=== PATIENT | female | born 1995 | race Caucasian/White ===

== ENCOUNTER 2020-09-25 18:28 | Emergency (ER) | payer OTHER, SELFPAY ==
--- NOTE | ~2020-09-25 | XR_ITS ---
XR knee LT 3V 09/25/2020 19:43 INDICATION: Left knee pain PROCEDURE: 3 views left knee COMPARISON: No prior studies for comparison. FINDINGS: Fracture, dislocation or subluxation is not identified. The soft tissues appear within norm al limits. No foreign bodies are identified. IMPRESSION: 1: NO ACUTE BONE OR JOINT ABNORMALITY IDENTIFIED. Reviewed, dictated and finalized at location [facility]. OF PHYSICS
[2020-09-25 18:36] VITALS: BP 109/63; PULSE 72; RESP 20; TEMP 36.6; O2SAT 97
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
[2020-09-25] MEDS: diazePAM (*CRX) 5 MG TABLET PO (19:45)
[2020-09-25] MEDS: IBUPROFEN 600 MG TABLET PO (19:45)
[2020-09-25 20:13] VITALS: BP 110/62; PULSE 78; RESP 16; O2SAT 100
== END 2020-09-25 20:14 | disposition home or self-care (01) ==
PROVIDERS: Emergency Provider Emergency Medicine
DX: S16.1XXA Strain of muscle, fascia and tendon at neck level, initial encounter (principal); S39.012A Strain of muscle, fascia and tendon of lower back, initial encounter; S80.02XA Contusion of left knee, initial encounter; V43.02XA Car driver injured in collision with other type car in nontraffic accident, initial encounter
CPT/HCPCS: 73562; 99283; A9270

== ENCOUNTER 2021-09-22 16:10 | Emergency (ER) | payer MEDICAID, SELFPAY ==
--- NOTE | ~2021-09-22 | CT_ITS ---
EXAMINATION: CT abdomen pelvis w con DATE: 09/22/2021 18:01 INDICATION: Epigastric abdominal pain and gas for 2 days TECHNIQUE: Computed tomography (CT) of the abdomen and pelvis was performed with 100 cc Omnipaque 350 intravenous contrast. Automated exposure control and iterative reconstruction technique were employe d. Exam dose: 261.47 mGy-cm total exam DLP. COMPARISON: None. FINDINGS: The lung bases are clear. Normal heart size. No pericardial or pleural effusion. The liver, gallbladder, bile ducts, spleen, pancreas and pancreatic duct, and adrenal glands and kidn eys are unremarkable. Normal caliber of the abdominal aorta. No intraperitoneal or retroperitoneal or pelvic mass lesion or adenopathy or ascites. The uterus, adnexal areas and urinary bladder are unremarkable. Normal appendix. No small or large bowel dilatation, bowel wall thickening, pneumatosis or intraperitoneal free air. The fluid containing small bowel segments which may be due to enteritis or mild adynamic ileus. Included skeletal structures are unremarkable. IMPRESSION: Nondilated fluid containing small bowel segments, which may be due to enteritis or mild adynamic ileus Normal appendix Reviewed, dictated and finalized at [facility]. Reviewed, dictated and finalized at location [facility]. [employer]
[2021-09-22 16:12] VITALS: BP 129/74; PULSE 75; RESP 14; TEMP 36.6; O2SAT 99
[2021-09-22 16:30] VITALS: BP 120/72; PULSE 78; RESP 18; O2SAT 99
[2021-09-22] MEDS: SODIUM CHLORIDE 0.9% IV 1,000 ML 999 ML IV CONT (16:39)
--- NOTE | 2021-09-22 16:55 | ED.ABDPAIN ---
HPI - Abdominal Pain General Chief Complaint: Abdominal Pain Stated Complaint: abdominal pain Time Seen by Provider: 09/22/21 16:26 Source: patient Mode of arrival: ambulatory Limitations: no limitations History of Present Illness HPI narrative: Patient drove herself to the emergency room because of pain, burning sensation, cramps in the epigastric area started 2 to 3 days ago, got worse today. History of GERD, on [id number] antacid. Patient denies any fever, chills, nausea, vomiting, diarrhea, constipation, radiation of pain patient also denies any history of abdominal surgery, last menstrual period 2 weeks ago Related Data Allergies Allergy/AdvReac Type Severity Reaction Status Date / Time No Known Allergies Allergy Verified 09/22/21 16:27 Review of Systems Review of Systems: CONSTITUTIONAL: Denies fever, chills, or sweats. EYES: Denies visual changes, redness, or discharge. ENT: Denies rhinorrhea, congestion, sore throat, or otalgia. CARDIOVASCULAR: Denies chest pain, palpitations, or edema. RESPIRATORY: Denies cough or dyspnea. GASTROINTESTINAL: Denies abdominal pain, nausea, vomiting, or diarrhea. GENITOURINARY: Denies dysuria or hematuria. SKIN: Denies rash or itching. MUSCULOSKELETAL: Denies back pain, joint pain, or myalgia. NEUROLOGIC: Denies headache, numbness, or weakness. PSYCHIATRIC: Denies anxiety or depression. PMFSH Social History Social History Smoking status: Never smoker Exam Narrative: General appearance: Well-developed, well-nourished Skin: Normal color Head: Normocephalic, nontraumatic Eyes: Clear conjunctiva ENT: Oropharynx normal, ears normal, nose normal Neck: Supple, nontender Chest and respiratory: Airway patent, no respiratory distress, no accessory muscle use Heart: Regular rate/rhythm Abdomen: Soft, moderate tenderness epigastric area, no organomegaly, quiet bowel sounds Vascular: Normal peripheral pulses, normal capillary refill. Musculoskeletal: Normal range of motion, nontender back Neurologic: Alert and oriented ?3, [employer] is normal as tested, no gross motor deficit Course Course Emergency Course: Stable, improving Vital Signs Vital signs: Vital Signs Temperature 36.6 C 09/22/21 16:12 Pulse Rate 75 09/22/21 16:12 Respiratory Rate 14 09/22/21 16:12 Blood Pressure 129/74 09/22/21 16:12 Pulse Oximetry 99 09/22/21 16:12 Temperature 36.6 C 09/22/21 16:12 Pulse Rate 76 09/22/21 19:40 Respiratory Rate 15 09/22/21 19:40 Blood Pressure 132/78 09/22/21 19:40 Pulse Oximetry 99 09/22/21 19:40 MDM - Abdominal Pain MDM Narrative Medical decision making narrative: Epigastric pain Work-up did not show a specific findings to explain patient condition, enteritis is extremely less likely, patient symptoms more likely consistent with gastroesophageal reflux disorder. Differential Diagnosis Differential diagnosis: Likely abdominal pain, constipation, diverticulitis, gastroenteritis, pancreatitis, small bowel obstruction and other (GERD) Lab Data Result diagrams: 09/22/21 17:09 09/22/21 17:09 Labs: Lab Results 09/22/21 09/22/21 09/22/21 Range/Units 17:09 17:09 17:09 WBC 8.2 (4.5-10.0) K/mm3 RBC 4.11 L (4.2-5.4) M/mm3 Hgb 13.2 (12.0-15.0) g/dL Hct 38.4 (37.0-47.0) % MCV 93.4 (80-100) fl MCH 32.1 (26-34) pg MCHC 34.4 (32-36) g/dl RDW 11.9 (11.5-14.5) % Plt Count 268 (150-375) k/mm3 MPV 10.6 H (7.4-10.4) fl Immature Gran % (Auto) 0.2 (0-0.5) % Neut % (Auto) 65.1 (45.5-73.1) % Lymph % (Auto) 27.6 (18.3-44.2) % [place] % (Auto)
[2021-09-22] MEDS: BELLADONNA ALK/PHENOB ELIX 10 ML, MAG HYDROX/ALUMINUM HYD/SIMETH 30 ML, LIDOCAINE HCL 2... PO (17:17)
[2021-09-22] MEDS: ONDANSETRON INJ 4 MG/2 ML VIAL IV PUSH (17:18)
[2021-09-22] MEDS: MORPHINE SULFATE (*CRX) 4 MG/ML INJ IV PUSH ×2 (17:18→19:25)
[2021-09-22 17:27] LABS: Basophils Absolute Auto 0.1 K/mm3 (0.0-0.1); Basophils Percent Auto 0.6 % (0.2-1.2); Eosinophils Absolute Auto 0.1 K/mm3 (0-0.3); Eosinophils Percent Auto 0.7 % (0-4.4); Hematocrit 38.4 % (37.0-47.0); Hemoglobin 13.2 g/dL (12.0-15.0); Immature Granulocyte Absolute 0.02 K/mm3 (0.00-0.031); Immature Granulocyte Percent A 0.2 % (0-0.5); Lymphocytes Absolute Auto 2.27 K/mm3 (0.9-3.2); Lymphocytes Percent Auto 27.6 % (18.3-44.2); Mean Corpuscular HGB Conc 34.4 g/dl (32-36); Mean Corpuscular Hemoglobin 32.1 pg (26-34); Mean Corpuscular Volume 93.4 fl (80-100); Mean Platelet Volume 10.6 fl (7.4-10.4); Monocytes Absolute Auto 0.5 K/mm3 (0.1-0.6); Monocytes Percent Auto 5.8 % (2.6-8.5); Neutrophils Absolute Auto 5.3 K/mm3 (1.3-6.7); Neutrophils Percent Auto 65.1 % (45.5-73.1); Platelet Count Result 268 k/mm3 (150-375); Red Blood Count 4.11 M/mm3 (4.2-5.4); Red Cell Distribution Width 11.9 % (11.5-14.5); White Blood Count 8.2 K/mm3 (4.5-10.0)
[2021-09-22 17:36] LABS: Alanine Aminotransferase 21 U/L (4-35); Albumin Level 4.7 g/dL (3.5-5.1); Alkaline Phosphatase 66 U/L (38-126); Anion Gap 6 mmol/L (8-16); Aspartate Amino Transferase 27 U/L (14-36); Bilirubin,Total 0.4 mg/dL (0.2-1.3); Blood Urea Nitrogen 13 mg/dL (7-17); Calcium 9.4 mg/dL (8.4-10.2); Carbon Dioxide 26 mmol/L (22-30); Chloride 106 mmol/L (98-107); Estimated CRCL calculation 116 ml/min; Estimated Glomerular Filt Rate > 60; Glucose 83 mg/dL (65-110); Lipase 53 U/L (23-300); Potassium 3.6 mmol/L (3.4-5.0); Sodium 138 mmol/L (137-145)
[2021-09-22 17:36] LABS: Add Urine Microscopic? YES; Appearance Urine Clear (Clear); Bacteria Urine Trace /hpf; Bilirubin Urine Negative (Negative); Blood Urine Negative (Negative); Color Urine Colorless (Yellow); Glucose Urine UA Negative (Negative); Ketones Urine Trace mg/dL (Negative); Leukocyte Esterase Ur Negative LEU/UL (Negative); Nitrate Urine Negative (Negative); Protein Urine Negative (Negative); RBC Urine 0-2 /hpf (0-2); Specific Grav Ur 1.006 (1.001-1.035); Squamous Epithelial Cell Urine Few /hpf (Few); Urobilinogen Urine Negative mg/dL (<2.0)
[2021-09-22 18:00] VITALS: BP 122/68; PULSE 70; RESP 18; O2SAT 99
[2021-09-22 19:40] VITALS: BP 132/78; PULSE 76; RESP 15; O2SAT 99
== END 2021-09-22 19:45 | disposition home or self-care (01) ==
PROVIDERS: Emergency Provider Emergency Medicine
DX: R10.13 Epigastric pain (principal)
CPT/HCPCS: 36415; 74177; 80053; 81001; 81025; 83690; 85025; 96361; 96374; 96375; 96376; 99284; A9270; J2270; J2405; J7030; Q9967

== ENCOUNTER 2022-11-05 09:18 | Outpatient (CLI) | payer OTHER, SELFPAY ==
[2022-11-05 09:58] LABS: Basophils Absolute Auto 0.1 K/mm3 (0.0-0.1); Eosinophils Absolute Auto 0.1 K/mm3 (0-0.3); Eosinophils Percent Auto 2.1 % (0-4.4); Hematocrit 40.4 % (37.0-47.0); Hemoglobin 13.9 g/dL (12.0-15.0); Immature Granulocyte Absolute 0.01 K/mm3 (0.00-0.031); Immature Granulocyte Percent A 0.2 % (0-0.5); Lymphocytes Absolute Auto 1.82 K/mm3 (0.9-3.2); Lymphocytes Percent Auto 31.8 % (18.3-44.2); Mean Corpuscular HGB Conc 34.4 g/dl (32-36); Mean Corpuscular Hemoglobin 31.5 pg (26-34); Mean Corpuscular Volume 91.6 fl (80-100); Mean Platelet Volume 9.7 fl (7.4-10.4); Monocytes Absolute Auto 0.5 K/mm3 (0.1-0.6); Monocytes Percent Auto 8.4 % (2.6-8.5); Neutrophils Absolute Auto 3.2 K/mm3 (1.3-6.7); Neutrophils Percent Auto 56.5 % (45.5-73.1); Platelet Count Result 298 k/mm3 (150-375); Red Blood Count 4.41 M/mm3 (4.2-5.4); Red Cell Distribution Width 11.7 % (11.5-14.5); White Blood Count 5.7 K/mm3 (4.5-10.0)
[2022-11-05 10:13] LABS: CRP 0.6 mg/dL (<1.0)
[2022-11-05 10:18] LABS: Alanine Aminotransferase 22 U/L (6-35); Albumin Level 4.7 g/dL (3.5-5.1); Alkaline Phosphatase 57 U/L (38-126); Anion Gap 5 mmol/L (8-16); Aspartate Amino Transferase 22 U/L (14-36); Bilirubin,Total 0.4 mg/dL (0.2-1.3); Blood Urea Nitrogen 14 mg/dL (7-17); Calcium 9.5 mg/dL (8.4-10.2); Carbon Dioxide 29 mmol/L (22-30); Chloride 101 mmol/L (98-107); Cholesterol 161 mg/dL (0-200); Estimated Glomerular Filt Rate > 60; Glucose 95 mg/dL (65-110); HDL Direct 66 mg/dL; Potassium 4.6 mmol/L (3.4-5.0); Sodium 135 mmol/L (137-145); Triglycerides 47 mg/dL (<150)
[2022-11-05 10:22] LABS: LDL Cholesterol Direct 74 mg/dL
[2022-11-05 10:26] LABS: Erythrocyte Sedimentation Rate 22 mm/hr (0-20)
[2022-11-05 10:40] LABS: Thyroid Stimulating Hormone 0.771 uIU/mL (0.465-4.680)
[2022-11-09 14:59] LABS: Gliadin AB, IgG <1.0 U/mL (<15.0); TTG IGA AB <1.0 U/mL (<15.0)
== END 2022-11-05 09:19 | disposition home or self-care (01) ==
PROVIDERS: PCP Family Medicine; Visit Provider Nurse Practitioner
DX: Z00.00 Encounter for general adult medical examination without abnormal findings (principal); Z86.59 Personal history of other mental and behavioral disorders; R68.81 Early satiety; R14.2 Eructation; R14.0 Abdominal distension (gaseous); K52.9 Noninfective gastroenteritis and colitis, unspecified; K21.9 Gastro-esophageal reflux disease without esophagitis; F41.9 Anxiety disorder, unspecified; M79.672 Pain in left foot; M79.671 Pain in right foot
CPT/HCPCS: 36415; 73630; 80053; 80061; 83516; 84443; 85025; 85652; 86140; 86255

== ENCOUNTER 2023-06-10 10:34 | Outpatient (CLI) | payer OTHER, SELFPAY ==
[2023-06-10 19:01] LABS: Free T4 Free Thyroxine 1.07 ng/mL (0.78-2.19)
[2023-06-10 19:10] LABS: Thyroid Stimulating Hormone 0.845 uIU/mL (0.465-4.680); Total Triiodothyronine (T3) 1.28 NG/ML (0.97-1.69)
== END 2023-06-10 10:35 | disposition home or self-care (01) ==
PROVIDERS: PCP Nurse Practitioner Adult Health; Visit Provider Nurse Practitioner Adult Health
DX: R23.2 Flushing (principal)
CPT/HCPCS: 36415; 84439; 84443; 84480

== ENCOUNTER 2023-11-11 12:05 | Outpatient (CLI) | payer OTHER, SELFPAY ==
--- NOTE | ~2023-11-11 | XR_ITS ---
AP and lateral views of the right hip Clinical history: Pain Findings: No acute fracture or dislocation is seen. Osseous alignment is anatomic. Bilateral hip and SI joint spaces are preserved. Soft tissues are unremarkable. Impression: No significant abnormality is seen. Reviewed, dictated and finalized at location . Impression: No significant abnormality is seen.
[2023-11-11 18:17] LABS: Hematocrit 42.1 % (37.0-47.0); Hemoglobin 13.7 g/dL (12.0-15.0); Mean Corpuscular HGB Conc 32.5 g/dl (32-36); Mean Corpuscular Hemoglobin 31.4 pg (26-34); Mean Corpuscular Volume 96.6 fl (80-100); Mean Platelet Volume 10.6 fl (7.4-10.4); Platelet Count Result 332 k/mm3 (150-375); Red Blood Count 4.36 M/mm3 (4.2-5.4); Red Cell Distribution Width 12.8 % (11.5-14.5)
[2023-11-11 19:01] LABS: Alanine Aminotransferase 27 U/L (6-35); Albumin Level 4.4 g/dL (3.5-5.1); Alkaline Phosphatase 62 U/L (38-126); Anion Gap 8 mmol/L (8-16); Aspartate Amino Transferase 54 U/L (14-36); Bilirubin,Total 0.4 mg/dL (0.2-1.3); Blood Urea Nitrogen 12 mg/dL (7-17); Calcium 9.7 mg/dL (8.4-10.2); Carbon Dioxide 25 mmol/L (22-30); Chloride 106 mmol/L (98-107); Cholesterol 162 mg/dL (0-200); Estimated Glomerular Filt Rate > 60; Glucose 85 mg/dL (65-110); HDL Direct 58 mg/dL; Potassium 3.6 mmol/L (3.4-5.0); Sodium 139 mmol/L (137-145); Triglycerides 79 mg/dL (<150)
[2023-11-11 19:12] LABS: LDL Cholesterol Direct 86 mg/dL
[2023-11-11 19:30] LABS: Thyroid Stimulating Hormone 0.977 uIU/mL (0.465-4.680)
== END 2023-11-11 12:06 | disposition home or self-care (01) ==
LOC: ANHBWCLAB 12:06
PROVIDERS: PCP Nurse Practitioner Adult Health; Visit Provider Nurse Practitioner Adult Health
DX: S79.911A Unspecified injury of right hip, initial encounter (principal); Z86.59 Personal history of other mental and behavioral disorders; Z13.9 Encounter for screening, unspecified
CPT/HCPCS: 36415; 73502; 80053; 80061; 82607; 82746; 84443; 85027

== ENCOUNTER 2023-11-27 10:31 | Day surgery (SDC) | payer OTHER, SELFPAY ==
[2023-11-18 08:34] VITALS: BMI 28.4
[2023-11-26 13:16] VITALS: BMI 28.4
[2023-11-27 11:20] VITALS: BP 114/70; PULSE 82; RESP 18; TEMP 37.3; O2SAT 97
[2023-11-27] MEDS: LACTATED RINGERS 1,000 ML 150 ML IV CONT (11:32)
--- NOTE | 2023-11-27 11:33 | WPDANESEPPF ---
Anes - Initial Pre Proc Eval Procedure: Operation Date: 11/27/23 12:30 Proposed Procedures p Esophagogastroduodenoscopy - Sp Conrad MD Date/Time: 11/27/23 11:33 Surgeon: Sp Conrad MD Pre Op Diagnosis: Dysphagia unspecified Patient Data Age: 28 Gender: F Height: 1.68 m Weight: 77.85 kg Last Vital Signs Temp 37.3 C 11/27/23 11:20 Pulse 82 11/27/23 11:20 Resp 18 11/27/23 11:20 BP 114/70 11/27/23 11:20 Pulse Ox 97 11/27/23 11:20 O2 Del Method Room Air 11/27/23 11:20 Allergies Allergy/AdvReac Type Severity Reaction Status Date / Time No Known Allergies Allergy Verified 11/27/23 11:18 Home Medications Medication Instructions Recorded Confirmed Type hydroxyzine HCl 25 mg tablet 25 mg PO QHS PRN anxiety #90 tabs 06/10/23 11/27/23 Rx ondansetron 8 mg disintegrating 8 mg PO Q12H PRN nausea and 11/11/23 11/27/23 Rx tablet vomiting #30 tabs Patient hx anesthesia problems: none Family hx anesthesia problems: none Results Review: All pre-operative results and documents have been reviewed as part of the pre-operative evaluation. [facility] Past Medical History Medical History Belching symptom Chronic diarrhea Early satiety GERD (gastroesophageal reflux disease) History of stomach ulcers IBS (irritable bowel syndrome) Family History Family History Father History of ETOH abuse Depression Mother Depression History of ETOH abuse Disorder of thyroid Bipolar 1 disorder Sibling Depression Grandparent History of ETOH abuse Diabetes mellitus Depression Bipolar 1 disorder Heart disease Disorder of thyroid Grandparent Bipolar 1 disorder Diabetes mellitus Heart disease Social History Social History Smoking status: Never smoker Alcohol intake: current Drinks per week: 2 Substance use: current Substance use type: marijuana Other substance usage details: 7-10 TIMES A WEEK Lack of Transportation: No Lack of Food: Never True Current Housing: I Have Housing Concerned About Future Housing: No Difficulty Paying Gas/Electric Bills: No Difficulty Paying for Meds: No Currently Unemployed: No Education: Associate Degree Difficulty w/ Childcare or Family Care: No Living arrangements: with family Occupation/Education: student Gender identity (if verbalized by the patient): Female Spiritual care concerns: No Agree to blood products: No Anes - Eval Final PreProcedure Day of Procedure 11/27/23 11:33 Patient weight: overweight Heart: regular rate and rhythm Lungs: clear to auscultation Airway: Mallampati scale class II Neurological: alert and oriented Last oral intake: >/= 8 hours ASA classification: II Emergent: no Anesthetic plan: proceed Anesthesia type and monitoring: general GIVS and standard monitoring Results Review: All pre-operative results and documents have been reviewed as part of the pre-operative evaluation. Informed Consent: The patient's anesthetic plan and its attendant risks and benefits were discussed with the patient/family/POA. Questions were solicited and answers provided to the satisfaction of the patient/family/POA.
--- NOTE | 2023-11-27 11:44 | PM.HPGS ---
History of Present Illness History of Present Illness Consent: Risks, benefits, and alternatives have been discussed and questions answered. Patient agrees to proceed with procedure. Chief complaint: Lump in throat Narrative: Siena Kelly is a 28 year old female referred for EGD by care service. Patient reports for the last 1 year she has had the sensation of a lump in her throat. Over the last 4-6 weeks she feels as though there is a mass on the base of her tongue. She feels it is the size of a golf ball. She denies any difficulty swallowing. Is any weight loss. She denies any bleeding. Patient referred for further evaluation today by endoscopy. She has not seen ENT service yet. Family history is noncontributory. Patient has a past medical history of bulimia . Review of Systems Review of Systems: All systems reviewed & are unremarkable except as noted in HPI and below PMFSH Past Medical History Medical History Belching symptom Chronic diarrhea Early satiety GERD (gastroesophageal reflux disease) History of stomach ulcers IBS (irritable bowel syndrome) Family History Family History Father History of ETOH abuse Depression Mother Depression History of ETOH abuse Disorder of thyroid Bipolar 1 disorder Sibling Depression Grandparent History of ETOH abuse Diabetes mellitus Depression Bipolar 1 disorder Heart disease Disorder of thyroid Grandparent Bipolar 1 disorder Diabetes mellitus Heart disease Social History Social History Smoking status: Never smoker Alcohol intake: current Drinks per week: 2 Substance use: current Substance use type: marijuana Other substance usage details: 7-10 TIMES A WEEK Lack of Transportation: No Lack of Food: Never True Current Housing: I Have Housing Concerned About Future Housing: No Difficulty Paying Gas/Electric Bills: No Difficulty Paying for Meds: No Currently Unemployed: No Education: Associate Degree Difficulty w/ Childcare or Family Care: No Living arrangements: with family Occupation/Education: student Gender identity (if verbalized by the patient): Female Spiritual care concerns: No Agree to blood products: No Meds Home Medications and Allergies Home Medications Medication Instructions Recorded Confirmed Type hydroxyzine HCl 25 mg tablet 25 mg PO QHS PRN anxiety #90 tabs 06/10/23 11/27/23 Rx ondansetron 8 mg disintegrating 8 mg PO Q12H PRN nausea and 11/11/23 11/27/23 Rx tablet vomiting #30 tabs Allergies Allergy/AdvReac Type Severity Reaction Status Date / Time No Known Allergies Allergy Verified 11/27/23 11:18 Vital Signs Vital Signs - 24 hr 11/27/23 11:20 Temperature 99.1 F Pulse Rate 82 Respiratory Rate 18 Blood Pressure 114/70 Pulse Oximetry 97 Oxygen Delivery Room Air Exam Narrative: Physical exam reveals patient to be alert signs stable. HEENT exam is unremarkable to my exam. But distal portion of the base that time not able to be evaluated. Lungs are clear. Heart without murmur.. Abdomen bowel sounds are present soft nontender with no organomegaly. Assessment and Plan Assessment and plan (1) Lump in throat: Code(s): R22.1 - Localized swelling, mass and lump, neck Status: Acute Assessment and Plan: Patient complains of sensation of lump in the throat. She states she feels that there may be a mass the size of a golf ball on the base of her tongue. Patient referred for EGD today. She may also need ENT evaluation eventual
[2023-11-27 12:03] VITALS: BP 105/58; PULSE 81; RESP 20; O2SAT 99
--- NOTE | 2023-11-27 12:03 | WPDANESPN ---
Anes - Prog Note Post-Op Date/Time: 11/27/23 12:03 Cardiovascular status: normal Respiratory status: normal Airway patency: baseline Mental status: baseline Post-Op hydration status: normal Vital Signs: Last Vital Signs Temp 37.3 C 11/27/23 11:20 Pulse 82 11/27/23 11:20 Resp 18 11/27/23 11:20 BP 114/70 11/27/23 11:20 Pulse Ox 97 11/27/23 11:20 O2 Del Method Room Air 11/27/23 11:20 Pain Score (VAS): 0 I/O: Intake & Output 11/26/23 11/27/23 11/27/23 23:59 07:59 15:59 Intake Total 0 Balance 0 Patient Feedback: Patient satisfied with anesthetic care.
[2023-11-27 12:13] VITALS: BP 108/68; PULSE 62; RESP 16; O2SAT 100
[2023-11-27 12:26] VITALS: BP 109/59; PULSE 64; RESP 16; O2SAT 100
== END 2023-11-27 12:53 | disposition home or self-care (01) ==
PROVIDERS: PCP Family Medicine; Visit Provider Internal Medicine Gastroenterology
PROC: 0DJ08ZZ Inspection of Upper Intestinal Tract, Via Natural or Artificial Opening Endoscopic (ICD-10-PCS; CPT 43235; principal; 2023-11-27 12:30)
DX: K22.10 Ulcer of esophagus without bleeding (principal)
CPT/HCPCS: 43235